=== PATIENT | male | born 1960 | race Caucasian/White ===

== ENCOUNTER 2018-12-08 09:15 | Outpatient (REF) | payer MEDICARE, MEDICAID, SELFPAY ==
[2018-12-08 19:25] LABS: ALT 27 U/L (12-78); AST 18 U/L (15-37); Albumin 3.9 g/dL (3.4-5.0); Alkaline Phosphatase 73 U/L (46-116); Anion Gap 6.7 mmol/L (3-11); BUN 10 mg/dL (7-18); Bilirubin, Total 0.8 mg/dL (0.2-1.0); CO2 30.3 mmol/L (21.0-32.0); CREATININE 1.07 mg/dL (0.70-1.30); Calcium 9.1 mg/dL (8.5-10.1); Chloride 103 mmol/L (98-107); Cholesterol 191 mg/dL (50-200); Glucose 104 mg/dL (70-100); HDL Cholesterol 42 mg/dL (40-60); LDL CHOLESTEROL 120 mg/dL (<100); Potassium 4.2 mmol/L (3.5-5.1); Sodium 140 mmol/L (136-145); Triglyceride 134 mg/dL (30-150)
[2018-12-08 22:38] LABS: Hemoglobin A1C 5.6 % (4.5-6.2)
== END 2018-12-08 09:35 ==
LOC: NCHCN 09:15
PROVIDERS: PCP Internal Medicine; Visit Provider Internal Medicine
DX: Z79.899 Other long term (current) drug therapy (principal); R69 Illness, unspecified
CPT/HCPCS: 80053; 80061; 83721; 83036

== ENCOUNTER 2020-06-28 16:11 | Outpatient (REF) | payer MEDICARE, MEDICAID, SELFPAY ==
[2020-06-28 19:38] LABS: ALT 39 U/L (16-63); AST 25 U/L (15-37); Albumin 4.4 g/dL (3.4-5.0); Alkaline Phosphatase 73 U/L (46-116); Anion Gap 6.6 mmol/L (3-11); BUN 14 mg/dL (7-18); Bilirubin, Total 0.9 mg/dL (0.2-1.0); CO2 30.4 mmol/L (21.0-32.0); Calcium 9.3 mg/dL (8.5-10.1); Chloride 101 mmol/L (98-107); Glucose 111 mg/dL (74-106); Potassium 4.7 mmol/L (3.5-5.1); Sodium 138 mmol/L (136-145); TSH 1.18 uIU/mL (0.36-3.74); Total Protein 7.5 g/dL (6.4-8.2)
== END 2020-06-28 16:31 ==
LOC: NCHCN 16:11
PROVIDERS: PCP Internal Medicine; Visit Provider Internal Medicine
DX: E66.3 Overweight (principal); G93.1 Anoxic brain damage, not elsewhere classified; Z79.899 Other long term (current) drug therapy
CPT/HCPCS: 80053; 84443

== ENCOUNTER 2020-07-02 08:52 | Outpatient (REF) | payer MEDICARE, MEDICAID, SELFPAY ==
[2020-07-02 22:24] LABS: Calculated LDL 138 mg/dL (<100); Cholesterol 203 mg/dL (<200); HDL Cholesterol 40 mg/dL (40-60); Triglyceride 126 mg/dL (<150)
[2020-07-02 22:44] LABS: Hemoglobin A1C 5.4 % (3.8-5.6)
[2020-07-04 06:06] LABS: Vitamin D 25 Total 101.2 ng/ml (30-100)
== END 2020-07-02 09:12 ==
LOC: LBN 08:52
PROVIDERS: PCP Internal Medicine; Visit Provider Internal Medicine
DX: Z79.899 Other long term (current) drug therapy (principal)
CPT/HCPCS: 80061; 82306; 83036

== ENCOUNTER 2021-07-02 14:52 | Outpatient (REF) | payer MEDICARE, MEDICAID, SELFPAY ==
[2021-07-02 21:03] LABS: HCT 45.8 % (40.0-50.0); HGB 15.5 g/dL (13.5-17.5); MCHC 33.8 % (32.0-36.0); MCV 88.6 fL (80-95); MPV 9.5 fL (8.0-11.0); Platelet Count 220 10^3/uL (130-400); RBC 5.17 10^6/uL (4.36-5.78); RDW 12.6 % (11.8-14.1); RDW-SD 41.5 fL; WBC 5.78 10^3/uL (4.4-10.8)
[2021-07-02 21:28] LABS: ALT 28 U/L (16-63); AST 21 U/L (15-37); Albumin 4.4 g/dL (3.4-5.0); Alkaline Phosphatase 81 U/L (46-116); BUN 10 mg/dL (7-18); Bilirubin, Total 0.8 mg/dL (0.2-1.0); CREATININE 1.1 mg/dL (0.70-1.30); Calcium 9.2 mg/dL (8.5-10.1); Chloride 105 mmol/L (98-107); Glucose 99 mg/dL (74-106); Potassium 4.7 mmol/L (3.5-5.1); Sodium 139 mmol/L (136-145); Total Protein 7.4 g/dL (6.4-8.2)
== END 2021-07-02 14:53 | disposition home or self-care (01) ==
LOC: NCHCN 14:52
PROVIDERS: PCP Internal Medicine; Visit Provider Internal Medicine
DX: D72.819 Decreased white blood cell count, unspecified (principal); E66.3 Overweight
CPT/HCPCS: 80053; 85027

== ENCOUNTER 2022-02-11 13:02 | Outpatient (REF) | payer MEDICARE, MEDICAID, SELFPAY ==
[2022-02-11 21:44] LABS: Calculated LDL 122 mg/dL (<100); Cholesterol 187 mg/dL (<200); Glucose 80 mg/dL (74-106); HDL Cholesterol 49 mg/dL (40-60); Triglyceride 82 mg/dL (<150)
== END 2022-02-11 13:03 | disposition home or self-care (01) ==
LOC: NCHCN 13:02
PROVIDERS: PCP Internal Medicine; Visit Provider Internal Medicine
DX: E66.3 Overweight (principal)
CPT/HCPCS: 80061; 82947

== ENCOUNTER 2023-02-10 14:11 | Outpatient (REF) | payer MEDICARE, MEDICAID, SELFPAY ==
[2023-02-11 11:27] LABS: ALT 28 U/L (16-63); AST 22 U/L (15-37); Albumin 4.6 g/dL (3.4-5.0); Alkaline Phosphatase 82 U/L (46-116); Anion Gap 6.1 mmol/L (3-11); BUN 14 mg/dL (7-18); CO2 30.9 mmol/L (21.0-32.0); CREATININE 1.2 mg/dL (0.70-1.30); Calcium 10.1 mg/dL (8.5-10.1); Calculated LDL 117 mg/dL (<100); Chloride 104 mmol/L (98-107); Cholesterol 190 mg/dL (<200); Estimated GFR 67.95 (mL/min/1.73m2); Glucose 117 mg/dL (74-106); HDL Cholesterol 54 mg/dL (40-60); Potassium 5.2 mmol/L (3.5-5.1); Sodium 141 mmol/L (136-145); Total Protein 7.8 g/dL (6.4-8.2); Triglyceride 97 mg/dL (<150)
[2023-02-11 19:40] LABS: PSA, Screening 1.2 ng/mL (<=4.5)
== END 2023-02-10 14:12 | disposition home or self-care (01) ==
LOC: NCHCN 14:11
PROVIDERS: PCP Internal Medicine; Visit Provider Internal Medicine
DX: E78.5 Hyperlipidemia, unspecified (principal); Z86.19 Personal history of other infectious and parasitic diseases; Z12.5 Encounter for screening for malignant neoplasm of prostate
CPT/HCPCS: 80053; 80061; 84153

== ENCOUNTER 2023-10-18 10:12 | Outpatient (CLI) | payer MEDICARE, MEDICAID, SELFPAY ==
[2023-10-18 08:46] LABS: ALT 29 U/L (16-63); AST 21 U/L (15-37); Albumin 4.2 g/dL (3.4-5.0); Alkaline Phosphatase 85 U/L (46-116); Anion Gap 5.4 mmol/L (3-11); BUN 21 mg/dL (7-18); Bilirubin, Total 0.8 mg/dL (0.2-1.0); CO2 31.6 mmol/L (21.0-32.0); Calcium 9.3 mg/dL (8.5-10.1); Calculated LDL 104 mg/dL (<100); Chloride 104 mmol/L (98-107); Cholesterol 177 mg/dL (<200); Estimated GFR 84.05 (mL/min/1.73m2); Glucose 94 mg/dL (74-106); HDL Cholesterol 54 mg/dL (40-60); Potassium 4.7 mmol/L (3.5-5.1); Sodium 141 mmol/L (136-145); Total Protein 7.4 g/dL (6.4-8.2); Triglyceride 98 mg/dL (<150)
== END 2023-10-18 10:13 | disposition home or self-care (01) ==
LOC: LBO 10:14
PROVIDERS: PCP Internal Medicine; Visit Provider Internal Medicine
DX: E78.5 Hyperlipidemia, unspecified (principal)
CPT/HCPCS: 36415; 80053; 80061

== ENCOUNTER 2024-03-15 09:19 | Outpatient (CLI) | payer MEDICARE, MEDICAID, SELFPAY ==
[2024-03-15 09:42] LABS: Abs Immature Grans 0.01 10^3/uL (0.0-0.06); Absolute Basophil Count 0.03 10^3/uL (0.0-0.2); Absolute Eosinophil Count 0.18 10^3/uL (0.0-0.7); Absolute Lymphocyte Count 1.17 10^3/uL (1.2-3.4); Absolute Monocyte Count 0.42 10^3/uL (0.1-0.8); Absolute Neutrophil Count 2.96 10^3/uL (1.2-6.7); Basophils % 0.6; Eosinophils % 3.8; HCT 44.7 % (40.0-50.0); HGB 15.1 g/dL (13.5-17.5); Immature Grans % 0.2; Lymphocytes % 24.5; MCH 30.4 pg (27.0-33.0); MCHC 33.8 % (32.0-36.0); MCV 90 fL (80-95); MPV 8.9 fL (8.0-11.0); Monocytes % 8.8; Neutrophils % 62.1; Platelet Count 182 10^3/uL (130-400); RBC 4.96 10^6/uL (4.36-5.78); RDW 12.8 % (11.8-14.1); RDW-SD 42.2 fL; WBC 4.77 10^3/uL (4.4-10.8)
[2024-03-15 19:33] LABS: HIV-1/2 Ag & Ab Screen Negative (Negative)
[2024-03-16 19:22] LABS: Calculated LDL 116 mg/dL (<100); Cholesterol 190 mg/dL (<200); HDL Cholesterol 58 mg/dL (40-60); Triglyceride 80 mg/dL (<150)
== END 2024-03-15 09:20 | disposition home or self-care (01) ==
LOC: LBO 09:19
PROVIDERS: PCP Internal Medicine; Visit Provider Internal Medicine
DX: E66.3 Overweight (principal); K64.9 Unspecified hemorrhoids
CPT/HCPCS: 36415; 80061; 87389; 85025

== ENCOUNTER 2024-10-17 18:26 | Outpatient (REF) | payer MEDICARE, MEDICAID, SELFPAY ==
--- OUTSIDE RECORDS SUMMARY | 2024-10-17 18:29 | XMS_ITS | Encounter Summary ---
Author Organization [facility] Address [address] [place] [address] Care Team Providers Care Account Manager Name Role Phone Unavailable Primary Care Provider Unavailabl e Encounter Details Date Type Department Care Team (Late st Contact Info) Description 03/15/2024 Lab Requisition [facility] Pathology & Laboratory Medicine - Main [place] [address] [place] [address] Outr Resulting Lab, Provider Social History Tobacco Use Types Packs/Day Years Used Date Smoking Tobacco: Never Assessed Sex and Gender Information Value Date Recorded Sex Assigned at Not on file Legal Sex Male 17:36 EST Gender Identity Not on file Sexual Orientation Not on file documented as of this encounter Plan of Treatment Upcoming Encounters Date Type Department Care Team (Late st Contact Info) Description 11/08/2024 13:00 EST Rehab Therapy Visit [facility] Sewing Supervisor Rehabilitation - Medical Office Building [address] [place], [place] [phone] Delfina Bolaños, OT [address] [facility] Medical Office Building, [address] [place] [phone] documented as of this encounter Procedures Procedure Name Priority Date/Time Associated Diagnosis Comments HIV 1/2 ANTIGEN AND ANTIBODY, 4TH GENERATION Routine 03/15/2024 9:30 EDT documented in this encounter Results * HIV 1/2 ANTIGEN AND ANTIBODY, 4TH GENERATION (03/15/2024 9:30 EDT) HIV 1 and 2 Antibody/p24 Antigen, 4th Generation Negative Negative 03/15/2024 19:29 EDT [facility] Comment:If acute HIV-1 infec tion is suspected in a high risk patient, submit plasma specimen for HIV-1 RNA quantitation test. Blood VENOUS BLOOD / Unknown 03/15/2024 9:30 EDT 03/15/2024 17:35 EDT Narrative [facility] - 03/15/2024 19:29 EDT Fourth Generation assay performed on the Siemens SSN Logisticsaur XPT. us Provider Outr Resulting Lab IMMUNOLOGY AND SEROL OGY ORDERABLES Final Result [facility] [address] [place] [id number] documented in this encounter Visit Diagnoses Not on filedocumented in this encounter
--- OUTSIDE RECORDS SUMMARY | 2024-10-17 18:29 | XMS_ITS | Encounter Summary ---
Author Organization [facility] Address [address] [place] [address] Care Team Providers Care Boiler Repairman Name Role Phone Unavailable Primary Care Provider Unavailabl e Encounter Details Date Type Department Care Team (Late st Contact Info) Description 02/11/2023 Lab Requisition [facility] Pathology & Laboratory Medicine - Main [place] [address] [place] [address] Outr Resulting Lab, Provider Social History Tobacco [...] Description 11/08/2024 13:00 EST Rehab Therapy Visit [facility] Ball Holder Rehabilitation - Medical Office Building [address] [place], [place] [phone] Delfina Bolaños, OT [address] [facility] Medical Office Building, [address] [place] [phone] documented as of this encounter Procedures Procedure Name Priority Date/Time Associated Diagnosis Comments PSA TOTAL, DIAGNOSTIC Routine 02/10/2023 12:00 EDT documented in this encounter Results * PSA TOTAL, DIAGNOSTIC (02/10/2023 12:00 EDT) PSA 1.2 <=4.5 ng/mL 02/11/2023 19:35 EDT [facility] Blood VENOUS BLOOD / Unknown 02/10/2023 12:00 EDT 02/11/2023 17:51 EDT Narrative [facility] - 02/11/2023 19:35 EDT NOTE: Serum PSA concentration should not be interpreted as absolute evidence for the presence or absence of malignant disease. Assayed on Siemens [employer]iance [employer] EcoSurgeaur XPT using chemiluminescent technology.??Values obtained by using different assay methods cannot be used interchangeably. us Provider Outr Resulting Lab CHEMISTRY & BLOOD GA S ORDERABLES Final Result [facility] [address] [place] [address] documented in this encounter Visit Diagnoses Not on filedocumented in this encounter
--- OUTSIDE RECORDS SUMMARY | 2024-10-17 18:29 | XMS_ITS | Referral Summary ---
Author Organization [facility] Address [address] [place] [address] Care Team Providers Care Retail Store Assistant Name Role Phone Unavailable Primary Care Provider Unavailabl e Social History Tobacco Use Types Packs/Day Years Used Date Smoking Tobacco: Never Assessed Sex and Gender Information Value Date Recorded Sex Assigned at Not on file Legal Sex Male 17:36 EST Gender Identity Not on file Sexual Orientation Not on file Plan of Treatment Upcoming Encounters Date Type Department Care Team (Late st Contact Info) Description 11/08/2024 13:00 EST Rehab Therapy Visit [facility] Geospatial Intelligence Analyst Rehabilitation - Medical Office Building [address] [place], [place] [phone] Delfina Bolaños, OT [address] [facility] Medical Office Building, [address] [place] [phone] [place] [id number] MEDICAID [place]
--- OUTSIDE RECORDS SUMMARY | 2024-10-17 18:29 | XMS_ITS | Clinical Summary ---
Author Organization [facility] Address [address] [place] [address] Care Team Providers Care Rehab Nursing Tech Name Role Phone Unavailable Primary Care Provider [...] Description 11/08/2024 13:00 EST Rehab Therapy Visit [facility] Pilot Teacher Rehabilitation - Medical Office Building [address] [place] [address] Delfina Bolaños, OT [address] [facility] Medical Office Building, [address] [place] [phone] Health Maintenance Due Date Last Done Comments Hepatitis C Screen 1960 Fall Risk Screening 2024 COVID-19 Vaccine (2023-25 season) 2024 RSV Immunization ( o r 60+ Years) (1 - 1-dose 75+ series) 20[birth year] [place] [id number] MEDICAID [place]
--- OUTSIDE RECORDS SUMMARY | 2024-10-17 18:29 | XMS_ITS | Encounter Summary ---
Author Organization [facility] Address [address] [place] [address] Care Team Providers Care Forest Fire Lookout Name Role Phone Unavailable Primary Care Provider Unavailabl e Encounter Details Date Type Department Care Team (Late st Contact Info) Description 11/24/2000 Results Only [facility] - Maple conversion [address] [place], [place] [address] [place] Social History Tobacco Use Types Packs/Day Years [...] Description 11/08/2024 13:00 EST Rehab Therapy Visit [facility] Associate Entertainment Editor Rehabilitation - Medical Office Building [address] [place], [place] [phone] Delfina Bolaños, OT [address] [facility] Medical Office Building, [address] [place] [phone] documented as of this encounter Procedures Procedure Name Priority Date/Time Associated Diagnosis Comments SURGICAL PATHOLOGY Routine 11/24/2000 0:00 EST documented in this encounter Results * SURGICAL PATHOLOGY (11/24/2000 0:00 EST) Pathology Report: SURGICAL PATHOLOGY REPORT Reports generated via electronic interface contain original data; however they are lacking the format of the original report. Caution should be taken when reading/interpreti ng unformatted reports. Name: ? HARRISON EARLY ? Accession #: ? [id number] ? : ? 1960 (Age: 40) ??M ? Collect Date: ? 11/24/2000 ? Location: ? [facility] ? Receive Date: ? 11/24/2000 ? Provider: HARRISON SHORE MD Copy to: ? Final Pathologic Diagnosis: ? Liver, biopsy ([id number], 10/27/00): - Mild portal chronic inflammation consistent with chronic viral hepatitis. ??See comment. Comment: ? Thank you for the opportunity to review this case in consultation. ??The lobular architecture is preserved. The hepatocytes show no conclusive evidence of necrosis. ??There is no intralobular and inflammatory infiltration. The portal tracts contain increased chronic inflammation. ??The bile ducts are unremarkable. Trichrome stain shows periportal fibrosis. ??The iron stain is negative. ??The reticulin and PAS stains are within normal limits. ??Given the serologic data of a positive Hepatitis B surface antigen and a positive Hepatitis C antibody, these changes are entirely consistent with a chronic viral hepatitis. ??(Dr. Ortiz)/[facility] ?? Document reviewed and electronically signed by: CARRI BLANCO MD Report ??Date: 11/25/2000 15:47 By the signature above, the attending physician certifies that he/she has personally conducted a gross and/or microscopic examination of the described specimens and rendered or confirmed the above diagnosis. Specimen(s) Received: ? [facility] [id number](10) Clinical History: ? H/O hepatitis Gross Description: ? Ten slides are received for review from [facility], one each labelled [id number], [id number] RC 11/18/2000, [id number] Fe, [id number] Fe control, [id number] Camacho, [id number] Camacho control, [id number] Retic, [id number] Retic control, [id number] Pas w/D, [id number] Pas w/D control. ?? End of Report LYNDON PEREZ 11/24/2000 11/24/2000 11: 21 EST us [place] PATHOLOGY ORDERABLES Final Res ult LYNDON PEREZ [address] [place] [address] documented in this encounter Visit Diagnoses Not on filedocumented in this encounter
--- OUTSIDE RECORDS SUMMARY | 2024-10-17 18:29 | XMS_ITS | Encounter Summary ---
Author Organization [facility] Address [address] [place] [address] Care Team Providers Care Artificial Limb Maker Name Role Phone Unavailable Primary Care Provider Unavailabl e Reason for Visit * Reason Onset Date Comments Appointment Related 04/18/2024 Encounter Details Date Type Department Care Team (Late st Contact Info) Description 04/18/2024 Telephone [facility] Personnel Representative Rehabilitation - Medical Office Building [address] [place] [phone] Therapy, Outpatient, Appointment Related Social History Tobacco Use Types Packs/Day Years Used Date Smoking Tobacco: Never Assessed Sex and Gender Information Value Date Recorded Sex Assigned at Not on file Legal Sex Male 17:36 EST Gender Identity Not on file Sexual Orientation Not on file documented as of this encounter Miscellaneous Notes * Telephone Encounter - Inés Napoles - 04/18/2024 1056 EDT [facility] MATERNAL FETAL PHYSICIAN REHABILITATION - MEDICAL OFFICE BUILDING [address] [facility] [address] Telephone Intake Information for Scheduling NEW Patients for Personnel Representative Rehabilitation PATIENT INFORMATION: Referral Link: [id number] License State and ID#: n/a License Status: n/a Date of last EYE EXAM: 6 months ago Ambulation device used: no Seizures : no (Must be seizure free for 6 months before scheduling) BILLING INFORMATION: Primary Insurance For New Patient/Part 1 Evaluation: Medicare (All Medicare Plans) - Are you receiving any Home Health or VNA services? no Billing information For On Road/Part 2 Evaluation/Follow Up: Medicare (All Medicare Plans) - Are you receiving any Home Health or VNA services? no Notes: Rashid Hayes, Shared Living Provider, will be attending documented in this encounter Plan of Treatment Upcoming Encounters Date Type Department Care Team (Late st Contact Info) Description 11/08/2024 13:00 EST Rehab Therapy Visit [facility] Personnel Representative Rehabilitation - Medical Office Building [address] [place] [address] Delfina Bolaños, OT [address] [facility] Liliya Benz, Medical Office Building, [address] [place] [phone] documented as of this encounter Visit Diagnoses Not on filedocumented in this encounter
[2024-10-17 19:17] LABS: HCT 48.5 % (40.0-50.0); HGB 16.4 g/dL (13.5-17.5); MCH 30.7 pg (27.0-33.0); MCHC 33.8 % (32.0-36.0); MCV 91 fL (80-95); MPV 9.2 fL (8.0-11.0); Platelet Count 225 10^3/uL (130-400); RBC 5.34 10^6/uL (4.36-5.78); RDW 12.5 % (11.8-14.1); RDW-SD 41.1 fL
== END 2024-10-17 18:27 | disposition home or self-care (01) ==
LOC: NCHCN 18:26
PROVIDERS: PCP Internal Medicine; Visit Provider Internal Medicine
DX: K92.1 Melena (principal)
CPT/HCPCS: 85027

== ENCOUNTER 2024-12-18 02:03 | Outpatient (CLI) | payer MEDICARE, MEDICAID, SELFPAY ==
--- NOTE | 2024-12-18 | DI.US_ITS ---
Exam(s) US AAA SCREENING EXAM: US AAA SCREENING CLINICAL HISTORY: ABDOMINAL AORTIC ANEURYSM SCREENING, Z13.6, HX NICOTINE DEPENDENCE COMPARISON: No exams were available for comparison FINDINGS: Abdominal Aorta: Proximal: 2.1 x 2.5 cm Mid: 2.2 x 2.3 cm Distal: 2.1 x 2.1 cm Iliac's: Right: 1.3 x 1.4 cm Left: 1.4 x 1.4 cm No significant atherosclerotic disease is seen. IMPRESSION: No evidence of abdominal aortic aneurysm. DATA REPOSITORY:
== END 2024-12-18 02:23 ==
LOC: DI 02:03
PROVIDERS: PCP Internal Medicine; Visit Provider Internal Medicine
DX: Z13.6 Encounter for screening for cardiovascular disorders (principal)
CPT/HCPCS: 76706

== ENCOUNTER 2025-06-14 02:44 | Outpatient (CLI) | payer MEDICARE, MEDICAID, SELFPAY ==
[2025-06-14 08:37] LABS: ALT 28 U/L (16-63); AST 19 U/L (15-37); Albumin 4.4 g/dL (3.4-5.0); Alkaline Phosphatase 76 U/L (46-116); Anion Gap 6.3 mmol/L (3-11); BUN 16 mg/dL (7-18); Bilirubin, Total 1.1 mg/dL (0.2-1.0); CO2 31.7 mmol/L (21.0-32.0); Calcium 9.3 mg/dL (8.5-10.1); Calculated LDL 94 mg/dL (<100); Chloride 101 mmol/L (98-107); Cholesterol 167 mg/dL (<200); Estimated GFR 83.01 (mL/min/1.73m2); Glucose 88 mg/dL (74-106); HDL Cholesterol 57 mg/dL (>or=40); Potassium 4.6 mmol/L (3.5-5.1); Sodium 139 mmol/L (136-145); Total Protein 7.2 g/dL (6.4-8.2); Triglyceride 80 mg/dL (<150)
== END 2025-06-14 02:45 | disposition home or self-care (01) ==
LOC: LBO 02:44
PROVIDERS: PCP Internal Medicine; Visit Provider Internal Medicine
DX: Z79.899 Other long term (current) drug therapy (principal)
CPT/HCPCS: 36415; 80053; 80061